=== PATIENT | female | born 1995 | race Hispanic/Latino ===

== ENCOUNTER 2018-01-15 13:09 | Emergency (ER) | payer OTHER ==
[2018-01-15 13:26] VITALS: BMI 19.3
[2018-01-15] MEDS ORDERED: Albuterol-Ipratrop 3 mg / 0.5 (3 ml) UD INH STA (14:08)
[2018-01-15] MEDS ORDERED: Albuterol-Ipratrop 3 mg / 0.5 (3 ml) UD ONE (14:22)
--- NOTE | 2018-01-15 14:22 | ED PDOC ---
HPI: SOB/CHF/COPD Time Seen by Provider: 01/15/18 13:52 Chief Complaint (Nursing): Shortness Of Breath Chief Complaint (Provider): Asthma Exacerbation History Per: Patient History/Exam Limitations: no limitations Onset/Duration Of Symptoms: Days (4) Current Symptoms Are (Timing): Still Present Initiating Event: Upper Respiratory Illness Quality: Squeezing Exacerbating Factor(s): Exertion, Coughing Past Medical History Vital Signs: Last Vital Signs Temp 98.0 F 01/15/18 17:00 Pulse 88 01/15/18 17:00 Resp 14 01/15/18 17:00 BP 122/79 01/15/18 17:00 Pulse Ox 98 01/15/18 17:00 - Medical History PMH: Asthma - Family History Family History: States: Unknown Family Hx - Allergies Allergies/Adverse Reactions: Allergies Allergy/AdvReac Type Severity Reaction Status Date / Time No Known Allergies Allergy Verified 01/15/18 13:25 Wells Criteria for PE - Wells Criteria for Pulmonary Embolism Clinical Signs and Symptoms of DVT: No P.E is #1 Diagnosis, or Equally Likely: No Heart Rate >100: No Immobilization at least 3 days;Surgery previous 4 weeks: No Previous, objectively diagnosed PE or DVT: No Hemoptysis: No Malignancy w/treatment within 6 months, or palliative: No Total Score: 0 Review of Systems ROS Statement: Except As Marked, All Systems Reviewed And Found Negative Respiratory: Positive for: Cough, Wheezing Physical Exam - Reviewed Nursing Documentation Reviewed: Yes Vital Signs Reviewed: Yes - Physical Exam Appears: Positive for: Well, Non-toxic, No Acute Distress. Negative for: Uncomfortable Head Exam: Positive for: ATRAUMATIC, NORMAL INSPECTION Skin: Positive for: Normal Color ENT: Positive for: Normal ENT Inspection, Pharynx Is (nonerythemic and without exudate), Nasal Congestion Neck: Positive for: Normal, Painless ROM, Supple. Negative for: Decreased ROM Cardiovascular/Chest: Positive for: Regular Rate, Rhythm, Chest Non Tender. Negative for: Edema, Murmur, Bradycardia, Tachycardia, Friction Rub Respiratory: Positive for: Wheezing. Negative for: Accessory Muscle Use, Crackles, Rales, Rhonchi, Stridor, Respiratory Distress Pulses-Carotid (L): 2+ Pulses-Carotid (R): 2+ Pulses-Radial (L): 2+ Pulses-Radial (R): 2+ - ECG O2 Sat by Pulse Oximetry: 96 Nebulizer Treatments/Peak Flow - Duonebs Number of Bronchodilator Doses given?: 1 Medical Decision Making Medical Decision Making: asthma exacerbation vs pna tx with neb and decadron cxr: clear no pneumo or PNA Disposition - Clinical Impression Clinical Impression: Respiratory tract infection, Asthma - Patient ED Disposition Is Patient to be Admitted: No Doctor Will See Patient In The: Office Counseled Patient/Family Regarding: Diagnosis, Need For Followup, Rx Given - Disposition Referrals: [facility] [Outside] Disposition Time: 18:43 Condition: GOOD Instructions: Asthma in Adults, How to Use Your Metered Dose Inhaler (Adults) Forms: [employer] ([place])
--- NOTE | 2018-01-15 16:57 | RAD ---
HISTORY: Pneumonia. COMPARISON: No prior. TECHNIQUE: Chest PA and lateral FINDINGS: LUNGS: No active pulmonary disease. PLEURA: No significant pleural effusion identified. No pneumothorax apparent. CARDIOVASCULAR: Normal. OSSEOUS STRUCTURES: No significant abnormalities. VISUALIZED UPPER ABDOMEN: Normal. OTHER FINDINGS: None. IMPRESSION: No active disease.
[2018-01-15 17:07] VITALS: BP 122/79; PULSE 88; RESP 14; TEMP 98
[2018-01-15 18:43] VITALS: O2SAT 96
== END 2018-01-15 17:06 | disposition home or self-care (01) ==
LOC: H.ER 13:09
DX: J45.901 Unspecified asthma with (acute) exacerbation (principal); J06.9 Acute upper respiratory infection, unspecified
CPT/HCPCS: 71046; 81025; 96372; 99284; J1100